=== PATIENT | male | born 1980 | race Caucasian/White ===

== ENCOUNTER → 2022-01-25 07:59 | Outpatient (BNVA) | payer OTHER, SELFPAY | PROVIDERS: Family Provider Family Medicine; PCP Family Medicine; Visit Provider Family Medicine | DX: E11.9 Type 2 diabetes mellitus without complications (principal); I10 Essential (primary) hypertension | CPT/HCPCS: 80053; 83036; 85025 ==

== ENCOUNTER → 2022-05-19 08:01 | Outpatient (BNVA) | payer OTHER, SELFPAY | PROVIDERS: Family Provider Family Medicine; PCP Family Medicine; Visit Provider Family Medicine | DX: E11.9 Type 2 diabetes mellitus without complications (principal); I10 Essential (primary) hypertension | CPT/HCPCS: 80053; 83036; 85025 ==

== ENCOUNTER → 2022-10-13 08:27 | Outpatient (BNVA) | payer SELFPAY | PROVIDERS: Family Provider Family Medicine; PCP Family Medicine; Visit Provider Family Medicine | DX: F32.A Depression, unspecified (principal); E11.9 Type 2 diabetes mellitus without complications; G47.33 Obstructive sleep apnea (adult) (pediatric); I10 Essential (primary) hypertension; Z51.81 Encounter for therapeutic drug level monitoring | CPT/HCPCS: 80053; 82043; 83036; 85025 ==

== ENCOUNTER → 2023-04-05 08:13 | Outpatient (BNVA) | payer SELFPAY | PROVIDERS: Family Provider Family Medicine; PCP Family Medicine; Visit Provider Family Medicine | DX: Z51.81 Encounter for therapeutic drug level monitoring (principal); R73.03 Prediabetes; Z13.220 Encounter for screening for lipoid disorders; I10 Essential (primary) hypertension; F32.A Depression, unspecified | CPT/HCPCS: 80053; 80061; 83036; 85025 ==

== ENCOUNTER → 2023-10-23 14:45 | Outpatient (BNVA) | payer SELFPAY | PROVIDERS: Family Provider Family Medicine; PCP Family Medicine; Visit Provider Family Medicine | DX: R73.03 Prediabetes (principal); I12.9 Hypertensive chronic kidney disease with stage 1 through stage 4 chronic kidney disease, or unspecified chronic kidney disease; N18.9 Chronic kidney disease, unspecified | CPT/HCPCS: 80053; 80061; 83036; 85025 ==

== ENCOUNTER → 2023-12-28 15:21 | Outpatient (BNVA) | payer OTHER, SELFPAY | PROVIDERS: Family Provider Family Medicine; PCP Family Medicine; Referring Provider Family Medicine; Visit Provider Student in an Organized Health Care Education/Training Program | DX: G56.03 Carpal tunnel syndrome, bilateral upper limbs (principal) | CPT/HCPCS: 73130 ==

== ENCOUNTER 2024-02-15 06:48 | Day surgery (SDC) | payer OTHER, SELFPAY ==
[2024-02-15 07:02] VITALS: BP 150/89; PULSE 54; RESP 18; TEMP 36.1; O2SAT 95
[2024-02-15] MEDS: sodium chloride 0.9% 1,000 ML 30 ML IV (07:12)
[2024-02-15] MEDS: acetaminophen 1,000 MG/100 ML PIGGYBACK 400 MG IV (07:13)
[2024-02-15] MEDS: ketorolac 30 mg/mL INJ IVP (07:16)
--- NOTE | 2024-02-15 07:47 | W.PM.OPSFHP ---
Same Day Surgery H&P Indication for Procedure/HPI DATE OF PROCEDURE: February 15, 2024 CHIEF COMPLAINT/INDICATIONFOR SURGICAL PROCEDURE: Left carpal tunnel syndrome PREOP DIAGNOSIS: Left Carpal Tunnel syndrome PLANNED PROCEDURE: Operation Date: 02/15/24 08:10 Proposed Procedures p Carpal Tunnel Release(Left) - Chilango Villanueva DO Medications/Allergies* Home Medications Medication Instructions Recorded Confirmed Type omega-3 acid ethyl esters 1 gram 1 cap PO DAILY 01/05/22 02/14/24 History capsule Allergies/Adverse Reactions Allergy/AdvReac Type Severity Reaction Status Date / Time No Known Allergies Allergy Verified 02/14/24 14:42 Current Medications: Generic Name Dose Route Start Last Admin Trade Name Freq PRN Reason Stop Dose Admin Sodium Chloride 1,000 mls @ 30 mls/hr 02/15/24 07:00 02/15/24 07:12 Sodium Chloride 0.9% IV 02/16/24 06:59 30 mls/hr .Q24H MURIEL Administration Pertinent History/Comorbid Conditions* Medical History (Updated 11/13/23 @ 15:51 by Edward Costa MD) Prediabetes Hypertension Surgical History (Updated 02/05/22 @ 15:50 by Edward Costa MD) History of vasectomy Hx of craniotomy At one month of age Family History (Updated 02/05/22 @ 15:51 by Edward Costa MD) Diabetes Father Social History Smoking and tobacco/nicotine status: never used tobacco/nicotine Alcohol intake: never Substance/Drug Use: never Current occupation: [employer] Pertinent Exam Findings alert, oriented x 3, operative site marked and procedure specific exam findings Please refer to detailed orthopedic examination on 12/28/2023: Bilateral Carpal Tunnel Examination: -Normal C spine ROM -No pain with C spine ROM -Negative Spurling's -Negative Tinel's at shoulders, bilateral -Negative Tinel's at and elbows, bilateral -Positive median nerve compression test, bilaterally -Positive Tinel's at wrist, Bilaterally -Thenar weakness on left thumb -Good strength in right thumb -No appreciable atrophy -Negative CMC grind -No pain along CMC joint -Good intrinsic strength -No atrophy -Mild palpable cord in palm over right ring finger, no contracture noted Recommendations Surgery/Procedure today Other Plans: Plan to proceed to the OR today for left carpal tunnel release surgery. Patient understands the ins and outs of the procedure the risk benefits complication alternatives of surgery and through shared decision-making was proceed with surgical intervention. All questions answered at this time. Coding Level of Care Code Acute Code for Carlos Monroe
--- NOTE | 2024-02-15 07:52 | P.ANESASSM_ITS ---
Pre-Anesthetic Assessment Height/Weight: Height 1.8 m Weight 143.789 kg Temp Pulse Resp BP Pulse Ox O2 Del Method 97 F L 54 L 18 150/89 95 Room Air 02/15/24 07:02 02/15/24 07:02 02/15/24 07:02 02/15/24 07:02 02/15/24 07:02 02/15/24 07:02 Preop Diagnosis: Left Carpal Tunnel syndrome Operation Date: 02/15/24 08:10 Proposed Procedures p Carpal Tunnel Release(Left) - Chilango Villanueva DO Familial anesthetic complications: None Was Beta Brandie taken within 24 hours: N/A Was Clonidine taken within 24 hours: N/A Last intake: Intake Last Liquid Date 02/14/24 Last Liquid Time 20:00 Last Solid Date 02/14/24 Last Solid Time 18:00 Social No alcohol and No tobacco Exam alert, oriented x 3, clear to auscultation bilaterally and regular rate & rhythm Airway Mallampati: Class IV Dentition: full Pulmonary Sleep Apnea CV/HEM Hypertension GI Gastroesophageal Reflux Disease Metabolic Diabetes Mellitus and Morbid Obesity Anesthetic Plan ASA status: 3 Anesthesia: MAC Risk of > 500 ml blood loss (7ml/kg in children): No Medications/Allergies Home Medications Medication Instructions Recorded Confirmed Last Taken Type omega-3 acid ethyl esters 1 gram 1 cap PO DAILY 01/05/22 02/14/24 01/25/24 History capsule hydrochlorothiazide 12.5 mg tablet 12.5 mg PO DAILY #90 tabs 06/26/23 02/14/24 02/14/24 Rx lisinopril 40 mg tablet 40 mg PO DAILY #90 tabs 06/26/23 02/14/24 02/14/24 Rx metformin 500 mg tablet 500 mg PO DAILY #90 tabs 06/26/23 02/14/24 02/14/24 Rx omeprazole 40 mg capsule,delayed 40 mg PO DAILY #90 caps 06/26/23 02/14/24 02/14/24 Rx release Allergies Allergy/AdvReac Type Severity Reaction Status Date / Time No Known Allergies Allergy Verified 02/14/24 14:42 Current Medications Generic Name Dose Route Start Last Admin Trade Name Freq PRN Reason Stop Dose Admin Sodium Chloride 1,000 mls @ 30 mls/hr 02/15/24 07:00 02/15/24 07:12 Sodium Chloride 0.9% IV 02/16/24 06:59 30 mls/hr .Q24H MURIEL Administration PFSH Anesthesia Medical History Prediabetes Hypertension Surgical History History of vasectomy Hx of craniotomy At one month of age Family History Father Diabetes Social History Smoking and tobacco/nicotine status: never used tobacco/nicotine Alcohol intake: never Substance/Drug Use: never Current occupation: [employer] Anesthesia Cardiac Studies: No Data to Display
[2024-02-15] MEDS: ceFAZolin 3,000 MG in sodium chloride 0.9% (plus) 100 ML 200 MG IV (08:45)
[2024-02-15] MEDS: lidocaine-epi 1% 20 mL INJ 5 ML INJECTION (09:11)
[2024-02-15] MEDS: ROPivacaine 0.5% SDV 30 mL 25 MG INJECTION (09:12)
[2024-02-15 09:29] VITALS: BP 135/73; PULSE 69; RESP 18; TEMP 36.3; O2SAT 97
--- NOTE | 2024-02-15 09:30 | P.BOP_ITS ---
Date of Procedure: 02/15/2024 Surgeon: Chilango Villanueva DO Veterinary Microbiologist(s): None Procedure(s) performed: Left carpal tunnel release Findings of the procedure(s): Patient was found to have left carpal tunnel syndrome underwent procedure as planned without issues or complications Estimated blood loss: 2 mL Specimen(s) removed: None Post-operative diagnosis: Left carpal tunnel syndrome
--- NOTE | 2024-02-15 09:31 | P.OP_ITS ---
Operative Report Date of procedure: February 15, 2024 Surgeon: Chilango Villanueva DO Procedure: Preop Diagnosis: Left Carpal Tunnel Syndrome Post-op diagnosis: Same Procedure done: 1. Left carpal tunnel release Surgeon: Chilango Villanueva DO Anesthesia: MAC (Local) Estimated blood loss: 2 mL Tourniquet time 8 minutes IV fluids: See anesthesia record Complications: None Findings: See operative report narrative Condition: stable Disposition: same day Brief History: Patient is a pleasant 43 year-old male with left carpal tunnel syndrome. Patient has been worked up in the outpatient setting findings and physical examination consistent with this. Given this severity of disease on examination as well as weakness we talked about treatment options in detail. We detailed out patient's risk benefits complication alternatives with surgical and nonsurgical treatment options. Through shared decision making, patient agrees to proceed with surgical intervention of the left carpal tunnel release . Patient understands and agrees with current plan. All questions answered. Patient elects to proceed with surgical intervention with carpal tunnel release. Procedure: Patient seen and evaluated in the preoperative holding area. Consent was reviewed and signed with patient. Correct extremity was marked. Patient was seen evaluated by the anesthesia department once cleared for surgery was brought back to the operative suite. Patient was kept on [facility] in supine position all bony prominences were well-padded patient properly secured to the bed. Left upper extremity was then placed onto an armboard. A nonsterile tourniquet was applied to the left upper arm. Patient underwent anesthesia per the anesthesia department. Patient's left upper extremity was then prepped and draped in standard orthopedic fashion. Final timeout performed. Patient received appropriate preoperative antibiotics. Under sterile aseptic technique patient received local anesthesia over the preplanned carpal tunnel incision site. Esmarch was used to exsanguinate the left upper extremity and tourniquet was insufflated to 250 mmHg. A standard mini open left carpal tunnel incision was made. Starting distally at Guerrero's cardinal line in line with the fourth ray extending proximally distal to the wrist crease centered over the carpal tunnel. Sharp scalpel incision was made through skin and subcutaneous tissue. Self-retaining retractor was placed and the palmar fascia was identified. This was then split longitudinally and direct visualization of the transverse carpal ligament was then made. I then utilizing scalpel feathered through the transverse carpal ligament until I entered the floor of the transverse carpal tunnel ligament into the carpal tunnel. Next I switched to dissection scissors and completed my release of the transverse carpal ligament distally with care to protect the recurrent motor branch. I completely released into the palmar fat and until no entrapment was noted distally. Care was made to protect the superficial palmar arch during my distal dissection. Next, nasal speculum placed proximally for retraction of soft tissue on top of the Transverse carpal ligament. Next the contents of the carpal tunnel where protected and and subsequently utilizing dissection scissors under loupe magnification completely released the transverse carpal ligament proximally into the antebrachial fascia. Care was made to protect the palmar cutaneous branch by keeping my scissors curved ulnarly. Once completely released, I then placed my Canute and had appropriate decompression of the carpal tunnel proximally as well as distally. I then inspected the contents of the carpal tunnel which showed an hourglass shape of the median nerve showing its compression. No masses were noted. Tendons appeared healthy. Wound was then thoroughly irrigated. Tourniquet deflated. Hemostasis satisfactory with bipolar electrocautery. I then closed the incision with interrupted nylon stitches. Xeroform 4 x 4's and a bulky soft dressing was applied to the left upper extremity. Patient was then awakened from anesthesia and taken to PACU in stable condition. Patient tolerated procedure without complications. Disposition: Patient taken to PACU in stable condition recovering well. Dressing clean dry and intact. Patient will receive appropriate discharge instructions as well as pain medication postoperatively. Patient to follow-up with me in the office in 2 weeks. They understand they may be weightbearing as tolerated to the left hand. Patient should keep incision clean dry and intact. Patient understands if any questions or concerns may contact the office.
[2024-02-15 09:34] VITALS: BP 136/70; PULSE 59; RESP 18; O2SAT 97
[2024-02-15 09:39] VITALS: BP 136/67; PULSE 57; RESP 18; O2SAT 98
[2024-02-15 09:48] VITALS: BP 150/80; PULSE 52; RESP 20; TEMP 36.3; O2SAT 94
[2024-02-15 10:01] VITALS: BP 176/81; PULSE 47; RESP 20; O2SAT 96
--- NOTE | 2024-02-15 10:15 | ANE.PACU2 ---
Inpatient post-anesthesia follow up: Airway intact: Yes Vital signs: Temperature 97.3 F Pulse Rate 47 Respiratory Rate 20 Blood Pressure 176/81 Pulse Oximetry 96 Oxygen Delivery Me thod Room Air Oxygen Flow Rate 6 Fraction of Inspir ed Oxygen Hydration adequate: Yes Nausea and vomiting: No Pain level: 1 Mental status: Baseline
== END 2024-02-15 10:15 | disposition home or self-care (01) ==
PROVIDERS: Family Provider Family Medicine; PCP Family Medicine; Visit Provider Student in an Organized Health Care Education/Training Program
PROC: (CPT 64721; principal; 2024-02-15 08:10)
DX: G56.02 Carpal tunnel syndrome, left upper limb (principal); G47.30 Sleep apnea, unspecified; I10 Essential (primary) hypertension; K21.9 Gastro-esophageal reflux disease without esophagitis; E11.9 Type 2 diabetes mellitus without complications; E66.01 Morbid (severe) obesity due to excess calories; Z68.41 Body mass index [BMI] 40.0-44.9, adult; Z79.84 Long term (current) use of oral hypoglycemic drugs
CPT/HCPCS: 64721; J0131; J0690; J1885; J2250; J2704; J2795; J7030

== ENCOUNTER 2024-03-18 20:00 | Outpatient (CLI) | payer OTHER, SELFPAY | END 2024-03-18 20:01 | disposition home or self-care (01) | LOC: SLEEP 23:17 | PROVIDERS: Family Provider Family Medicine; PCP Family Medicine; Visit Provider Family Medicine | DX: G47.33 Obstructive sleep apnea (adult) (pediatric) (principal) | CPT/HCPCS: 95811 ==

== ENCOUNTER → 2024-05-07 14:47 | Outpatient (BNVA) | payer OTHER, SELFPAY | PROVIDERS: Family Provider Family Medicine; PCP Family Medicine; Visit Provider Family Medicine | DX: Z13.220 Encounter for screening for lipoid disorders (principal); Z51.81 Encounter for therapeutic drug level monitoring; E53.8 Deficiency of other specified B group vitamins; E03.9 Hypothyroidism, unspecified; E11.9 Type 2 diabetes mellitus without complications; E55.9 Vitamin D deficiency, unspecified | CPT/HCPCS: 80053; 80061; 82306; 82607; 83036; 84439; 84443; 85025 ==

== ENCOUNTER → 2024-11-05 15:26 | Outpatient (BNVA) | payer BC, SELFPAY | PROVIDERS: Family Provider Family Medicine; PCP Family Medicine; Visit Provider Family Medicine | DX: I10 Essential (primary) hypertension (principal); F32.A Depression, unspecified; G47.33 Obstructive sleep apnea (adult) (pediatric); R73.03 Prediabetes | CPT/HCPCS: 80053; 82652; 83036; 85025 ==

== ENCOUNTER → 2025-05-12 15:01 | Outpatient (BNVA) | payer BC, SELFPAY | PROVIDERS: Family Provider Family Medicine; PCP Family Medicine; Visit Provider Family Medicine | DX: I10 Essential (primary) hypertension (principal); R73.03 Prediabetes; F32.A Depression, unspecified | CPT/HCPCS: 80053; 80061; 83036; 85025 ==